=== PATIENT | female | born 1985 | race Hispanic/Latino ===

== ENCOUNTER 2019-08-18 09:12 | Emergency (ER) | payer SELFPAY ==
[2019-08-18] MEDS ORDERED: Ibuprofen 200 MG TAB ONE (10:52)
== END 2019-08-18 11:30 | disposition home or self-care (01) ==
LOC: ERS 09:12
DX: J02.9 Acute pharyngitis, unspecified (principal); R05 Cough; R51 Headache; K21.9 Gastro-esophageal reflux disease without esophagitis; Z79.899 Other long term (current) drug therapy
CPT/HCPCS: 87081; 87430; 99283